=== PATIENT | female | born 1995 | race Caucasian/White ===

== ENCOUNTER 2022-04-11 21:11 | Observation (INO) ==
[2022-04-11] MEDS ORDERED: SODIUM CHLORIDE 0.9% 500 ML IV SCH (21:30)
[2022-04-11 21:59] LABS: Basophils # (auto) 0.08 K/uL (0-0.2); Basophils % (auto) 0.9 %; Eosinophils # (auto) 0.08 K/uL (0-0.50); Eosinophils % (auto) 0.9 %; Hematocrit (blood only) 41.9 % (34.1-44.9); Immature Granulocytes # (auto) 0.02 K/uL (0.00-0.02); Immature Granulocytes % (auto) 0.2 %; Lymphocytes # (auto) 3.46 K/uL (1.2-3.4); Lymphocytes % (auto) 40.5 %; Mean Corpuscular Hemoglobin 31.7 pg (25.0-34.0); Mean Corpuscular Hgb Conc 33.4 g/dL (32.0-36.0); Mean Platelet Volume 8.9 fL (9.4-12.3); Monocytes # (auto) 0.57 K/uL (0.24-0.82); Monocytes % (auto) 6.7 %; Neutrophils # (auto) 4.34 K/uL (1.4-6.5); Neutrophils % (auto) 50.8 %; Platelet Count 262 K/uL (130-400); RDW Standard Deviation 45.6 fL (36.4-46.3); Red Blood Count 4.41 M/uL (3.93-5.22); White Blood Count 8.55 K/ul (4.8-10.8)
[2022-04-11 22:00] LABS: iSTAT Creatinine 1.3 mg/dl (0.6-1.3); iSTAT Ionized Calcium 1.07 mmol/l (1.12-1.32); iSTAT Potassium 3.7 mmol/L (3.3-5.0)
[2022-04-11 22:07] LABS: Appearance Urine Turbid (Clear); Bacteria Urine Automated 4+ (Negative); Bilirubin Urine Negative (Negative); Blood Urine Trace (Negative); Color Urine Yellow; Epithelial Cell Urine Auto >30 /lpf (0-5); Glucose Urine UA Negative (Negative); Ketones Urine Negative (Negative); Leukocyte Esterase Urine Trace (Negative); Nitrite Urine Negative (Negative); Protein Urine 2+ (Negative); RBC Urine Automated 0-4 /hpf (0-4); Urobilinogen Urine Negative (Negative); WBC Urine Automated >30 /hpf (0-5); pH Urine 6.5 (4.5-7.5)
[2022-04-11 22:20] LABS: Albumin Globulin Ratio 1.5 (0.9-2); BUN Creatinine Ratio 12.8 (10-20); Bilirubin,Total 0.2 mg/dl (0.2-1.0); Calcium 8.8 mg/dl (8.5-10.1); Creatinine Clr Calc Pharmacy 80.1 ml/min; Est GFR (African American) 96.4 ml/min; Est GFR (Non-African American) 83.1 ml/min; Globulin 2.7 gm/dl (2.5-4.0); Potassium 3.7 mmol/L (3.5-5.1); Total Protein 6.7 gm/dl (6.0-8.3)
[2022-04-11 22:25] LABS: Cast Urine Automated 0 /lpf (0-5)
[2022-04-11 22:29] LABS: Pregnancy Test, Urine Negative (Negative)
[2022-04-11 22:38] LABS: Amphetamines+Metham, Urine Neg (Neg); Barbiturates, Urine Neg (Neg); Benzodiazepine, Urine Neg (Neg); Cocaine, Urine Neg (Neg); MDMA (Ecstacy), Urine Neg (Neg); Methadone, Urine Neg (Neg); Opiate, Urine Neg (Neg); Phencyclidine, Urine Neg (Neg)
[2022-04-11] MEDS ORDERED: MULTI-VITAMIN INFUSION 10 ML, THIAMINE HCL 100 MG, FOLIC ACID 1 MG in SODIUM CHLORIDE 0... IV ONE (23:13)
--- NOTE | 2022-04-11 23:13 | Emergency Department Note ---
History of Present Illness General Chief complaint: Unresponsive Stated complaint: etoh History of Present Illness 26-year-old female with a history of alcoholism presents to the ED with a chief complaint of alcohol overdose. The patient broke up with her boyfriend earlier this week. She has been drinking alcohol since Friday every day. The mother states that she has been drinking vodka. The patient called her mother this evening and told her she thinks she overdid it. The mother went to the patient's house and she was unresponsive. EMS was called. Prehospital blood sugar was 96. No known drug use. No known trauma. No additional history at this time as the patient is unresponsive. History was obtained from the mother who came in later. There was no vomitus at the scene or vomiting for EMS. Home Medications Medication Instructions Recorded Confirmed Type Unobtainable 04/11/22 04/11/22 History Allergies Allergy/AdvReac Type Severity Reaction Status Date / Time amoxicillin Allergy Mild rash Verified 12/21/13 17:35 clavulanic acid Allergy Mild rash Verified 12/21/13 17:35 Past Med/Surg History Medical History (Updated 04/11/22 @ 23:13 by Adolph Major DO) Alcohol abuse Alcoholism Social History Smoking Status: Unknown if ever smoked Preferred Language: Amharic Feels Safe at Home: Declines to Answer Review of Systems Unobtainable due to cognitive status Physical Exam Vital Signs Vital Signs - 24 hr 04/11/22 21:21 04/11/22 21:22 04/11/22 21:30 Temperature 36.8 C Temperature Source Oral Pulse Rate 64 85 61 Pulse Rate from SpO2 Sensor 64 61 Respiratory Rate 17 14 20 Respiratory Depth Normal Blood Pressure 118/77 Blood Pressure Mean 90 Pulse Oximetry 97 99 95 Oxygen Delivery Method Room Air Oxygen Flow Rate Sepsis Recent Fever Within 48 Hours No Sepsis New/Unexplained Change in Mental Status No Sepsis Action Taken by Nursing No Action Required 04/11/22 22:00 04/11/22 22:13 04/11/22 22:30 Temperature Temperature Source Pulse Rate 106 H 66 84 Pulse Rate from SpO2 Sensor 105 H 65 82 Respiratory Rate 14 19 15 Respiratory Depth Blood Pressure 120/89 115/75 119/67 Blood Pressure Mean 99 88 84 Pulse Oximetry 100 100 93 Oxygen Delivery Method Oxygen Flow Rate Sepsis Recent Fever Within 48 Hours Sepsis New/Unexplained Change in Mental Status Sepsis Action Taken by Nursing 04/11/22 23:00 04/11/22 23:01 Temperature Temperature Source Pulse Rate 67 79 Pulse Rate from SpO2 Sensor 68 Respiratory Rate 13 15 Respiratory Depth Blood Pressure 117/67 Blood Pressure Mean 83 Pulse Oximetry 100 100 Oxygen Delivery Method Nasal Cannula Oxygen Flow Rate 2 Sepsis Recent Fever Within 48 Hours Sepsis New/Unexplained Change in Mental Status Sepsis Action Taken by Nursing CONSTITUTIONAL/VITAL SIGNS: Reviewed / noted above. GENERAL: Unresponsive but in no distress. INTEGUMENTARY: Warm, dry, and [place]. HEAD: Normocephalic. EYES: without scleral icterus or trauma. Pupils are symmetric and responsive to light. ENT/OROPHARYNX: clear and moist. LYMPHADENOPATHY/NECK: No lymphadenopathy RESPIRATORY: Clear to auscultation bilaterally. No increased work of breathing. CARDIOVASCULAR: Regular rate and rhythm. GI/ABDOMEN: Soft and nontender. No organomegaly or pulsatile mass. EXTREMITIES: Warm and well perfused. NEUROLOGICAL: The patient opens her eyes to painful stimuli but does not respond verbally. Does not follow commands. MUSCULOSKELETAL: Normally developed without trauma. TRIAGE NURSING DOCUMENTATION REVIEWED. Course Administered Medications Discontinued Medications Sodium Chloride (Nss) 500 mls @ 999 mls/hr IV .Q31M DEXTER Stop: 04/11/22 22:00 Last Admin: 04/11/22 22:01 Dose: 999 mls/hr Documented by: [id number] Medical Decision Making Differential Diagnosis There is no evidence of other toxic ingestions, trauma, anemia, hypoglycemia, head injury or intracranial pathology, meningitis, encephalitis, acute intrathoracic or abdominal pathology or other metabolic condition. Medical Records Attestation: I reviewed the patient's medical records. Home Medications Current Medication List: was personally reviewed by ks Laboratory Data Attestation: I reviewed the patient's lab results. Result diagrams: 04/11/22 21:41 04/11/22 21:41 Lab Results 04/11/22 04/11/22 04/11/22 Range/Units 21:41 21:41 21:41 WBC 8.55 (4.8-10.8) K/ul RBC 4.41 (3.93-5.22) M/uL Hgb 14.0 (12.0-16.0) g/dl POC Hgb (12.0-16.0) g/dl Hct 41.9 (34.1-44.9) % POC Hct (37-47) % MCV 95.0 (80.0-100.0) fL MCH 31.7 (25.0-34.0) pg MCHC 33.4 (32.0-36.0) g/dL RDW Std Deviation 45.6 (36.4-46.3) fL RDW Coeff of Lara 13.0 (11.5-14.5) % Plt Count 262 (130-400) K/uL MPV 8.9 L (9.4-12.3) fL Immature Gran % (Auto) 0.2 % Neut % (Auto) 50.8 % Lymph % (Auto) 40.5 % [place] % (Auto) 6.7 % Eos % (Auto) 0.9 % Baso % (Auto) 0.9 % Neut # (Auto) 4.34 (1.4-6.5) K/uL Lymph # (Auto) 3.46 H (1.2-3.4) K/uL [place] # (Auto) 0.57 (0.24-0.82) K/uL Eos # (Auto) 0.08 (0-0.50) K/uL Baso # (Auto) 0.08 (0-0.2) K/uL Immature Gran # (Auto) 0.02 (0.00-0.02) K/uL POC Sodium (135-144) mmol/L Sodium 140 (136-145) mmol/L POC Potassium (3.3-5.0) mmol/L Potassium 3.7 (3.5-5.1) mmol/L POC Chloride (101-112) mmol/L Chloride 103 (98-107) mmol/L Carbon Dioxide 30 (21-32) mmol/L POC Total CO2 (24-31) mmol/L Anion Gap 7 (3-11) POC Anion Gap (16-25) mmol/L POC BUN (7-18) mg/dl BUN 12 (6-23) mg/dl Creatinine 0.94 (0.6-1.2) mg/dl POC Creatinine (0.6-1.3) mg/dl Est Cr Clr Drug Dosing 80.1 ml/min Est GFR ( Amer) 96.4 ml/min Est GFR (Non-Af Amer) 83.1 ml/min BUN/Creatinine Ratio 12.8 (10-20) Glucose 105 H (70-99(Fasting)) mg/dl POC Glucose (other) (70-99) mg/dl Calcium 8.8 (8.5-10.1) mg/dl POC Ioniz Calcium Norma (1.12-1.32) mmol/l Magnesium 2.0 (1.7-2.4) mg/dl Total Bilirubin 0.2 (0.2-1.0) mg/dl AST 17 (13-39) U/L ALT 16 (7-52) U/L Alkaline Phosphatase 51 (34-104) U/L Total Protein 6.7 (6.0-8.3) gm/dl Albumin 4.0 (3.4-5.0) gm/dl Globulin 2.7 (2.5-4.0) gm/dl Albumin/Globulin Ratio 1.5 (0.9-2) Urine Color Urine Appearance (Clear) Urine pH (4.5-7.5) Ur Specific [place] (1.000-1.030) Urine Protein (Negative) Urine Glucose (UA) (Negative) Urine Ketones (Negative) Urine Blood (Negative) Urine Nitrite (Negative) Urine Bilirubin (Negative) Urine Urobilinogen (Negative) Ur Leukocyte Esterase (Negative) Urine WBC (Auto) (0-5) /hpf Urine RBC (Auto) (0-4) /hpf U Hyaline Cast (Auto) (0-5) /lpf U Epithel Cells (Auto) (0-5) /lpf Urine Bacteria (Auto) (Negative) Urine Yeast Urine Test (Negative) Urine Opiates Screen (Neg) Ur Methadone, Qual (Neg) Urine Barbiturates (Neg) Ur Phencyclidine (PCP) (Neg) U Amphetamin/Meth Scrn (Neg) MDMA (Ecstasy) Screen (Neg) U Benzodiazepines Scrn (Neg) Ur Cocaine Metabolite (Neg) U Marijuana (THC) Screen (Neg) Ethyl Alcohol mg/dL 490.8 H (<10.0) mg/dl 04/11/22 04/11/22 04/11/22 Range/Units 21:47 21:55 21:55 WBC (4.8-10.8) K/ul RBC (3.93-5.22) M/uL Hgb (12.0-16.0) g/dl POC Hgb 15.0 (12.0-16.0) g/dl Hct (34.1-44.9) % POC Hct 44 (37-47) % MCV (80.0-100.0) fL MCH (25.0-34.0) pg MCHC (32.0-36.0) g/dL RDW Std Deviation (36.4-46.3) fL RDW Coeff of Lara (11.5-14.5) % Plt Count (130-400) K/uL MPV (9.4-12.3) fL Immature Gran % (Auto) % Neut % (Auto) % Lymph % (Auto) % [place] % (Auto) % Eos % (Auto) % Baso % (Auto) % Neut # (Auto) (1.4-6.5) K/uL Lymph # (Auto) (1.2-3.4) K/uL [place] # (Auto) (0.24-0.82) K/uL Eos # (Auto) (0-0.50) K/uL Baso # (Auto) (0-0.2) K/uL Immature Gran # (Auto) (0.00-0.02) K/uL POC Sodium 141 (135-144) mmol/L Sodium (136-145) mmol/L POC Potassium 3.7 (3.3-5.0) mmol/L Potassium (3.5-5.1) mmol/L POC Chloride 101 (101-112) mmol/L Chloride (98-107) mmol/L Carbon Dioxide (21-32) mmol/L POC Total CO2 29 (24-31) mmol/L Anion Gap (3-11) POC Anion Gap 15.0 L (16-25) mmol/L POC BUN 13 (7-18) mg/dl BUN (6-23) mg/dl Creatinine (0.6-1.2) mg/dl POC Creatinine 1.3 (0.6-1.3) mg/dl Est Cr Clr Drug Dosing ml/min Est GFR ( Amer) ml/min Est GFR (Non-Af Amer) ml/min BUN/Creatinine Ratio (10-20) Glucose (70-99(Fasting)) mg/dl POC Glucose (other) 106 H (70-99) mg/dl Calcium (8.5-10.1) mg/dl POC Ioniz Calcium Norma 1.07 L (1.12-1.32) mmol/l Magnesium (1.7-2.4) mg/dl Total Bilirubin (0.2-1.0) mg/dl AST (13-39) U/L ALT (7-52) U/L Alkaline Phosphatase (34-104) U/L Total Protein (6.0-8.3) gm/dl Albumin (3.4-5.0) gm/dl Globulin (2.5-4.0) gm/dl Albumin/Globulin Ratio (0.9-2) Urine Color Yellow Urine Appearance Turbid A (Clear) Urine pH 6.5 (4.5-7.5) Ur Specific [place] 1.010 (1.000-1.030) Urine Protein 2+ H (Negative) Urine Glucose (UA) Negative (Negative) Urine Ketones Negative (Negative) Urine Blood Trace H (Negative) Urine Nitrite Negative (Negative) Urine Bilirubin Negative (Negative) Urine Urobilinogen Negative (Negative) Ur Leukocyte Esterase Trace H (Negative) Urine WBC (Auto) >30 H (0-5) /hpf Urine RBC (Auto) 0-4 (0-4) /hpf U Hyaline Cast (Auto) 0 (0-5) /lpf U Epithel Cells (Auto) >30 H (0-5) /lpf Urine Bacteria (Auto) 4+ H (Negative) Urine Yeast Not Reportable Urine Test (Negative) Urine Opiates Screen Neg (Neg) Ur Methadone, Qual Neg (Neg) Urine Barbiturates Neg (Neg) Ur Phencyclidine (PCP) Neg (Neg) U Amphetamin/Meth Scrn Neg (Neg) MDMA (Ecstasy) Screen Neg (Neg) U Benzodiazepines Scrn Neg (Neg) Ur Cocaine Metabolite Neg (Neg) U Marijuana (THC) Screen Neg (Neg) Ethyl Alcohol mg/dL (<10.0) mg/dl 04/11/22 Range/Units 21:55 WBC (4.8-10.8) K/ul RBC (3.93-5.22) M/uL Hgb (12.0-16.0) g/dl POC Hgb (12.0-16.0) g/dl Hct (34.1-44.9) % POC Hct (37-47) % MCV (80.0-100.0) fL MCH (25.0-34.0) pg MCHC (32.0-36.0) g/dL RDW Std Deviation (36.4-46.3) fL RDW Coeff of Lara (11.5-14.5) % Plt Count (130-400) K/uL MPV (9.4-12.3) fL Immature Gran % (Auto) % Neut % (Auto) % Lymph % (Auto) % [place] % (Auto) % Eos % (Auto) % Baso % (Auto) % Neut # (Auto) (1.4-6.5) K/uL Lymph # (Auto) (1.2-3.4) K/uL [place] # (Auto) (0.24-0.82) K/uL Eos # (Auto) (0-0.50) K/uL Baso # (Auto) (0-0.2) K/uL Immature Gran # (Auto) (0.00-0.02) K/uL POC Sodium (135-144) mmol/L Sodium (136-145) mmol/L POC Potassium (3.3-5.0) mmol/L Potassium (3.5-5.1) mmol/L POC Chloride (101-112) mmol/L Chloride (98-107) mmol/L Carbon Dioxide (21-32) mmol/L POC Total CO2 (24-31) mmol/L Anion Gap (3-11) POC Anion Gap (16-25) mmol/L POC BUN (7-18) mg/dl BUN (6-23) mg/dl Creatinine (0.6-1.2) mg/dl POC Creatinine (0.6-1.3) mg/dl Est Cr Clr Drug Dosing ml/min Est GFR ( Amer) ml/min Est GFR (Non-Af Amer) ml/min BUN/Creatinine Ratio (10-20) Glucose (70-99(Fasting)) mg/dl POC Glucose (other) (70-99) mg/dl Calcium (8.5-10.1) mg/dl POC Ioniz Calcium Norma (1.12-1.32) mmol/l Magnesium (1.7-2.4) mg/dl Total Bilirubin (0.2-1.0) mg/dl AST (13-39) U/L ALT (7-52) U/L Alkaline Phosphatase (34-104) U/L Total Protein (6.0-8.3) gm/dl Albumin (3.4-5.0) gm/dl Globulin (2.5-4.0) gm/dl Albumin/Globulin Ratio (0.9-2) Urine Color Urine Appearance (Clear) Urine pH (4.5-7.5) Ur Specific [place] (1.000-1.030) Urine Protein (Negative) Urine Glucose (UA) (Negative) Urine Ketones (Negative) Urine Blood (Negative) Urine Nitrite (Negative) Urine Bilirubin (Negative) Urine Urobilinogen (Negative) Ur Leukocyte Esterase (Negative) Urine WBC (Auto) (0-5) /hpf Urine RBC (Auto) (0-4) /hpf U Hyaline Cast (Auto) (0-5) /lpf U Epithel Cells (Auto) (0-5) /lpf Urine Bacteria (Auto) (Negative) Urine Yeast Urine Test Negative (Negative) Urine Opiates Screen (Neg) Ur Methadone, Qual (Neg) Urine Barbiturates (Neg) Ur Phencyclidine (PCP) (Neg) U Amphetamin/Meth Scrn (Neg) MDMA (Ecstasy) Screen (Neg) U Benzodiazepines Scrn (Neg) Ur Cocaine Metabolite (Neg) U Marijuana (THC) Screen (Neg) Ethyl Alcohol mg/dL (<10.0) mg/dl Imaging Data My Impression: Chest x-ray: Per my interpretation there is no acute disease. No pneumothorax. CT scan of the brain: Per my interpretation no acute intracranial process. ECG Data Attestation: I personally reviewed and interpreted this ECG as follows: Additional Comments: Twelve-lead EKG: Per my interpretation shows normal sinus rhythm at a rate of 63. No ST elevation. No PVCs. Normal QTC. MDM Narrative 26-year-old female with alcohol intoxication with a history of alcoholism. She had been clean for a number of months but as per the mother, the patient " fell off the wagon" on Friday when she broke up with her boyfriend. She has been drinking approximately a bottle of vodka daily. She was unresponsive when the mother found her today after she had talked to her on the phone and the daughter stated that she thought that she may have had too much to drink. There is no vomiting. The patient was breathing comfortably when she was brought in by EMS. Prehospital blood sugar was 96. No significant findings on my exam other than her unresponsive state likely related to her alcohol of 490. CT scan of the brain did not show acute process. An EKG shows a normal sinus rhythm. CBC and chemistry panel was unremarkable. hCG was negative urine appears contaminated with no obvious infection. Urine drug screen was negative chest x-ray was negative for acute disease. The patient was placed supine on a monitor. She will be monitored through the night. Patient was signed out to Dr. Braswell, the night doctor. She was given 500 cc of normal saline IV as well as a banana bag. Impression & Plan Acute alcohol intoxication Discharge Plan Visit Data Chief Complaint: Unresponsive Stated Complaint: etoh ED Provider: Adolph Major Discharge Problem: Acute alcohol intoxication Patient Disposition: Still a Patient Discharge Instructions Krames/Other Patient Handouts: ED Alcohol Intoxication Activity Restrictions/Additional Instructions: Avoid excessive alcohol use. Forms Stand Alone Forms: [facility] Prescriptions Prescriptions: No Action Unobtainable RF: 0 Referrals Referrals: PCP,NO [Primary Care Provider] -
--- NOTE | 2022-04-12 04:48 | Emergency Department Note ---
ED Visit Note Patient is resting in no distress on my repeat evaluation of this patient at 4:45 AM. Patient is not currently stable for discharge. Patient has been in observation status since 2109 on April 11, 2022. Observation status will be continuing until the patient is sober alert and able to make decisions. Disposition is pending .
--- NOTE | 2022-04-12 06:09 | Emergency Department Note ---
ED Visit Note Repeat examination the patient is more alert sent with me not slurring her speech understands where she is. Does not want rehab. States that she will go home and will contact her mother. Disposition is discharged to home Diagnosis is ethanol intoxication Observation time started at 2109 on April 11, 2022 observation time ends at 6:10 AM April 12, 2022 .
[2022-04-12] MEDS ORDERED: LORazepam 1 MG TAB PO STA (06:37)
--- NOTE | 2022-04-12 07:09 | XRay Report ---
XR chest 1V portable HISTORY: 26 years-old Female weakness acute weakness COMPARISON: Chest radiograph 12/27/2013 TECHNIQUE: Portable AP view of the chest FINDINGS: The cardiomediastinal and hilar silhouettes are within normal limits. There is no pneumothorax, pleur al effusion, airspace consolidation or overt pulmonary edema. Bones of the chest appear normal. Bilat eral nipple jewelry. IMPRESSION: No acute process. ACT 112: Negative or not required by law. The above report was generated using voice recognition software. It may contain grammatical, syntax o r spelling errors. Electronically signed by: Live Glover M.D. 04/12/2022 7:08 AM
--- NOTE | 2022-04-12 07:14 | CT Scan Report ---
CT head/brain wo con CLINICAL HISTORY: 26 years-old Female with unresponsvie. Helical overdose. Acutely altered mental st atus TECHNIQUE: Multiple axial CT images of the head were obtained without contrast. A dose lowering tech nique was utilized adhering to the principles of ALARA. CT DOSE: 537.48 mGy.cm COMPARISON: None. FINDINGS: No acute intracranial hemorrhage, midline shift, intracranial mass, hydrocephalus, territorial ischem ia or abnormal extra-axial collection. The calvarium is intact. The paranasal sinuses, mastoid air cells, and middle ear cavities are clear . IMPRESSION: No acute intracranial abnormality. ACT 112: Negative or not required by law. The above report was generated using voice recognition software. It may contain grammatical, syntax o r spelling errors. Electronically signed by: Live Glover M.D. 04/12/2022 7:13 AM
--- NOTE | 2022-04-12 07:37 | Emergency Department Note ---
ED Visit Note Patient was here awaiting her mother to pick her up and take her home after alcohol overdose yesterday evening. Notified by nursing staff this is the patient states she felt generally ill. Patient states she feels feels a bit out of it. She states that she is concerned about her alcohol drinking and is concerned that she may go into withdrawal. States that she believes she had a seizure in the past in relation to her alcohol withdrawal. Denies hallucinations currently. Does feel somewhat anxious. Was previously given just a little bit ago on oral dose of Ativan. She is not significantly tachycardic or hypertensive here and does not appear tremulous on exam. Discussed with the patient given her significant alcohol use rapid cessation of alcohol without a taper would be dangerous precipitating dangerous alcohol withdrawal. Recommended rehab. Previously seen by case management who discussed this with her as well. Patient states that she wants to go to a further [id number] rehab and wanted to go home to have this set up. Discussed with her I could give her several tabs of Ativan at home to help withdrawal symptoms as needed but monitored withdrawal care given her significant alcohol usage and patient rehab would be recommended. Mother arrives and did have case management readdress this issue with her to discuss possible inpatient rehab options. Given her history of seizures she is agreeable that she needs monitored treatment if she wishes to stop drinking and as such we will have the hospitalist team evaluate for observation at this time for monitored withdrawal while case management works for possible rehab options. Given some Ativan as well some Tylenol for a mild headache. Negative prior CT imaging. Believe she does have some anxiety as well as minimal withdrawal at this point. Diagnosis: Alcohol intoxication, alcohol abuse, history of alcohol withdrawal .
[2022-04-12] MEDS ORDERED: LORazepam 2 MG/1 ML VIAL IV STA (08:03)
[2022-04-12] MEDS ORDERED: ACETAMINOPHEN 325 MG TAB PO STA (08:15)
[2022-04-12] MEDS ORDERED: LORazepam 3 MG in SYRINGE 1.5 ML IV PRN (10:56)
[2022-04-12] MEDS ORDERED: LORazepam 2 MG in SYRINGE 1 ML IV PRN (10:56)
[2022-04-12] MEDS ORDERED: LORazepam 1 MG in SYRINGE 0.5 ML IV PRN (10:56)
[2022-04-12] MEDS ORDERED: ATIVAN IV ALCOHOL WITHDRAWL IV PRN (10:56)
--- NOTE | 2022-04-12 11:32 | History & Physical Report ---
Date of Service April 12, 2022 Assessment & Plan (1) Acute alcohol intoxication: Plan: 26 yo female with PMHx of alcoholism presented with acute alcohol intoxication. Acute Alcohol Intoxication -h/o of alcoholism, 1st episode in several months -ethyl alcohol 490 -head CT neg -CXR neg -UDS neg -NSS bolus, banana bag, ativan given in ED -cont. folic acid, thiamine -on AWSS protocol, seizure precautions -continues to clinically improve; discussed alcoholism treatment options after discharge with mom and patient including but not limited to rehab, pharmacotherapy, behavioral therapy, close f/u with PCP. Open to all options. Will likely begin with close PCP f/u and discuss further options from there. Would recommend treating underlying anxiety/depression as well in outpatient setting which could be primary risk factor for drinking habits. DVT ppx: SCDs FEN/GI: regular Code Status: full Dispo: med tele (2) Alcoholism: Admission and Anticipated Discharge Date Admission Date: April 12, 2022 History of Present Illness Chief Complaint: Alcohol abuse Primary Care Provider: NO PCP 26 yo female with PMHx of alcoholism presented with acute alcohol intoxication. Has been on a 3-4 day binge drinking puri due to feelings of anxiety/depression from a recent breakup. Prior, she would have a drink every now and then but had not binged drink like this for the past 3 months. She is concerned about her alcohol drinking and going into withdrawal. She thinks she may have had has had a withdrawal seizure in the past. Denies tremors, hallucinations, chest pain, headache, N/V. She does feel generally anxious. Does have a long standing history of anxiety and has been on medication in the past but not currently. She is open to treatment options for alcohol abuse. Recently moved to [place]. Does have good family support. Allergies Allergy/AdvReac Type Severity Reaction Status Date / Time amoxicillin Allergy Mild rash Verified 12/21/13 17:35 clavulanic acid Allergy Mild rash Verified 12/21/13 17:35 Home Medications Medication Instructions Recorded Confirmed Type Unobtainable 04/11/22 04/11/22 History Past Med/Surg History Medical History (Updated 04/11/22 @ 23:13 by Adolph Major DO) Alcohol abuse Alcoholism Social History Smoking Status: Never smoker Hx Alcohol Use: Yes Alcohol type: hard liquor Hx Substance Use: No Preferred Language: Greenlandic Communication Ability: Effective Public Administration Professor Required: No Beliefs That Will Affect Care: None Current Living Situation: Alone Feels Safe at Home: Yes Assistive Devices: None Review of Systems Review of Systems: All systems reviewed & are unremarkable except as noted in HPI & below Physical Exam Physical Exam: Constitutional: mom at bedside, in no acute distress, anxious appearing but pleasant, intact memory. Vitals as above. HEENT: No scleral injection or discharge.Moist mucous membranes.Clear oropharynx without erythema or exudate. Neck: Supple without lymphadenopathy. Trachea midline. Lungs: CTA bilaterally with good effort, no accessory muscle use Cardiac: RRR, no murmurs Abdomen: Soft, nontender, and nondistended.No guarding. MSK: No cyanosis or clubbing. Extremities motor strength 5/5. Skin: No rashes, warm, dry. Neurologic: Grossly intact cranial nerves and 2+ patellar tendon reflexes bilaterally. PERRL. Results & Data Results & Data ([facility]) Vital Signs (Past 12 Hours) Vital Signs Temp Pulse Pulse Resp BP BP Pulse Ox 04/12/22 10:56 36.8 C 88 14 110/78 98 04/12/22 10:00 92 H 16 93 04/12/22 09:30 84 21 97/59 L 04/12/22 09:00 94 H 13 121/87 04/12/22 08:30 108 H 12 133/89 04/12/22 08:00 90 15 140/82 94 04/12/22 07:30 87 13 144/95 H 100 04/12/22 07:01 95 H 15 126/97 97 04/12/22 07:00 91 H 21 100 04/12/22 06:30 98 H 12 98/56 L 95 04/12/22 06:00 75 9 L 96/42 L 97 04/12/22 05:30 83 13 92/54 L 04/12/22 05:00 74 15 101/50 L 94 04/12/22 04:30 84 13 99/46 L 98 04/12/22 04:00 79 12 94/52 L 04/12/22 03:30 73 17 92/45 L 04/12/22 03:00 84 12 96/62 L 04/12/22 02:30 93 H 16 120/78 07/08/22 02:00 94 H 17 112/74 04/12/22 01:30 89 15 117/71 04/12/22 01:27 95 04/12/22 01:25 90 16 116/78 95 04/12/22 01:00 89 16 116/78 04/12/22 00:30 100 H 5 L 121/93 04/12/22 00:29 136/103 H 04/12/22 00:15 109 H 15 04/12/22 00:08 93 H 16 111/72 04/12/22 00:00 102 H 20 04/11/22 23:30 87 13 127/81 100 Laboratory Results Laboratory Results WBC 8.55 K/ul (4.8-10.8) 04/11/22 21:41 RBC 4.41 M/uL (3.93-5.22) 04/11/22 21:41 Hgb 14.0 g/dl (12.0-16.0) 04/11/22 21:41 POC Hgb 15.0 g/dl (12.0-16.0) 04/11/22 21:47 Hct 41.9 % (34.1-44.9) 04/11/22 21:41 POC Hct 44 % (37-47) 04/11/22 21:47 MCV 95.0 fL (80.0-100.0) 04/11/22 21:41 MCH 31.7 pg (25.0-34.0) 04/11/22 21:41 MCHC 33.4 g/dL (32.0-36.0) 04/11/22 21:41 RDW Std Deviation 45.6 fL (36.4-46.3) 04/11/22 21:41 RDW Coeff of Lara 13.0 % (11.5-14.5) 04/11/22 21:41 Plt Count 262 K/uL (130-400) 04/11/22 21:41 MPV 8.9 fL (9.4-12.3) L 04/11/22 21:41 Immature Gran % (Auto) 0.2 % 04/11/22 21:41 Neut % (Auto) 50.8 % 04/11/22 21:41 Lymph % (Auto) 40.5 % 04/11/22 21:41 [place] % (Auto) 6.7 % 04/11/22 21:41 Eos % (Auto) 0.9 % 04/11/22 21:41 Baso % (Auto) 0.9 % 04/11/22 21:41 Neut # (Auto) 4.34 K/uL (1.4-6.5) 04/11/22 21:41 Lymph # (Auto) 3.46 K/uL (1.2-3.4) H 04/11/22 21:41 [place] # (Auto) 0.57 K/uL (0.24-0.82) 04/11/22 21:41 Eos # (Auto) 0.08 K/uL (0-0.50) 04/11/22 21:41 Baso # (Auto) 0.08 K/uL (0-0.2) 04/11/22 21:41 Immature Gran # (Auto) 0.02 K/uL (0.00-0.02) 04/11/22 21:41 POC Sodium 141 mmol/L (135-144) 04/11/22 21:47 Sodium 140 mmol/L (136-145) 04/11/22 21:41 POC Potassium 3.7 mmol/L (3.3-5.0) 04/11/22 21:47 Potassium 3.7 mmol/L (3.5-5.1) 04/11/22 21:41 POC Chloride 101 mmol/L (101-112) 04/11/22 21:47 Chloride 103 mmol/L (98-107) 04/11/22 21:41 Carbon Dioxide 30 mmol/L (21-32) 04/11/22 21:41 POC Total CO2 29 mmol/L (24-31) 04/11/22 21:47 Anion Gap 7 (3-11) 04/11/22 21:41 POC Anion Gap 15.0 mmol/L (16-25) L 04/11/22 21:47 POC BUN 13 mg/dl (7-18) 04/11/22 21:47 BUN 12 mg/dl (6-23) 04/11/22 21:41 Creatinine 0.94 mg/dl (0.6-1.2) 04/11/22 21:41 POC Creatinine 1.3 mg/dl (0.6-1.3) 04/11/22 21:47 Est Cr Clr Drug Dosing 80.1 ml/min 04/11/22 21:41 Est GFR ( Amer) 96.4 ml/min 04/11/22 21:41 Est GFR (Non-Af Amer) 83.1 ml/min 04/11/22 21:41 BUN/Creatinine Ratio 12.8 (10-20) 04/11/22 21:41 Glucose 105 mg/dl (70-99(Fasting)) H 04/11/22 21:41 POC Glucose (other) 106 mg/dl (70-99) H 04/11/22 21:47 Calcium 8.8 mg/dl (8.5-10.1) 04/11/22 21:41 POC Ioniz Calcium Norma 1.07 mmol/l (1.12-1.32) L 04/11/22 21:47 Magnesium 2.0 mg/dl (1.7-2.4) 04/11/22 21:41 Total Bilirubin 0.2 mg/dl (0.2-1.0) 04/11/22 21:41 AST 17 U/L (13-39) 04/11/22 21:41 ALT 16 U/L (7-52) 04/11/22 21:41 Alkaline Phosphatase 51 U/L (34-104) 04/11/22 21:41 Total Protein 6.7 gm/dl (6.0-8.3) 04/11/22 21:41 Albumin 4.0 gm/dl (3.4-5.0) 04/11/22 21:41 Globulin 2.7 gm/dl (2.5-4.0) 04/11/22 21:41 Albumin/Globulin Ratio 1.5 (0.9-2) 04/11/22 21:41 Urine Color Yellow 04/11/22 21:55 Urine Appearance Turbid (Clear) A 04/11/22 21:55 Urine pH 6.5 (4.5-7.5) 04/11/22 21:55 Ur Specific Coulters 1.010 (1.000-1.030) 04/11/22 21:55 Urine Protein 2+ (Negative) H 04/11/22 21:55 Urine Glucose (UA) Negative (Negative) 04/11/22 21:55 Urine Ketones Negative (Negative) 04/11/22 21:55 Urine Blood Trace (Negative) H 04/11/22 21:55 Urine Nitrite Negative (Negative) 04/11/22 21:55 Urine Bilirubin Negative (Negative) 04/11/22 21:55 Urine Urobilinogen Negative (Negative) 04/11/22 21:55 Ur Leukocyte Esterase Trace (Negative) H 04/11/22 21:55 Urine WBC (Auto) >30 /hpf (0-5) H 04/11/22 21:55 Urine RBC (Auto) 0-4 /hpf (0-4) 04/11/22 21:55 U Hyaline Cast (Auto) 0 /lpf (0-5) 04/11/22 21:55 U Epithel Cells (Auto) >30 /lpf (0-5) H 04/11/22 21:55 Urine Bacteria (Auto) 4+ (Negative) H 04/11/22 21:55 Urine Yeast Not Reportable 04/11/22 21:55 Urine Test Negative (Negative) 04/11/22 21:55 Urine Opiates Screen Neg (Neg) 04/11/22 21:55 Ur Methadone, Qual Neg (Neg) 04/11/22 21:55 Urine Barbiturates Neg (Neg) 04/11/22 21:55 Ur Phencyclidine (PCP) Neg (Neg) 04/11/22 21:55 U Amphetamin/Meth Scrn Neg (Neg) 04/11/22 21:55 MDMA (Ecstasy) Screen Neg (Neg) 04/11/22 21:55 U Benzodiazepines Scrn Neg (Neg) 04/11/22 21:55 Ur Cocaine Metabolite Neg (Neg) 04/11/22 21:55 U Marijuana (THC) Screen Neg (Neg) 04/11/22 21:55 Ethyl Alcohol mg/dL 490.8 mg/dl (<10.0) H 04/11/22 21:41 SARS-CoV-2, RNA, NAAT NEGATIVE (NEGATIVE) 04/12/22 08:26 Impressions Chest X-Ray 04/11/22 21:30 XR chest 1V portable HISTORY: 26 years-old Female weakness acute weakness COMPARISON: Chest radiograph 12/27/2013 TECHNIQUE: Portable AP view of the chest FINDINGS: The cardiomediastinal and hilar silhouettes are within normal limits. There is no pneumothorax, pleural effusion, airspace consolidation or overt pulmonary edema. Bones of the chest appear normal. Bilateral nipple jewelry. IMPRESSION: No acute process. ACT 112: Negative or not required by law. The above report was generated using voice recognition software. It may contain grammatical, syntax or spelling errors. Electronically signed by: Live Glover M.D. 04/12/2022 7:[address] 04/11/22 21:30 CT head/brain wo con CLINICAL HISTORY: 26 years-old Female with unresponsvie. Helical overdose. Acutely altered mental status TECHNIQUE: Multiple axial CT images of the head were obtained without contrast. A dose lowering technique was utilized adhering to the principles of ALARA. CT DOSE: 537.48 mGy.cm COMPARISON: None. FINDINGS: No acute intracranial hemorrhage, midline shift, intracranial mass, hydrocephalus, territorial ischemia or abnormal extra-axial collection. The calvarium is intact. The paranasal sinuses, mastoid air cells, and middle ear cavities are clear. IMPRESSION: No acute intracranial abnormality. ACT 112: Negative or not required by law. The above report was generated using voice recognition software. It may contain grammatical, syntax or spelling errors. Electronically signed by: Live Glover M.D. 04/12/2022 7:13 AM Code Status & VTE Plan VTE Prophylaxis Plan VTE Prophylaxis will be ordered: Yes Supervising Physician Co-Signing Physician Notes I personally examined the patient and verified all [place] points of history and exam, discussed case, and agree with decision making with Dr Lin. Feeling okay right now. Just a little bit spacey from the Ativan. No longer shaky. Believes she had a withdrawal seizure at 1 point. Current drinking binge has only been about 3 to 4 days, she was totally sober for about 2 months prior. Has had some fairly heavy drinking in the past. Vitals noted, in general she is awake and alert pleasant no distress. HEENT normocephalic atraumatic mucous membranes moist. Breathing unlabored no accessory muscle use good effort. Skin shows no rashes no pallor or icterus. Neuro without tremulousness and no other focal deficits or lateralizing signs at this time. Alcohol abuse/concern on withdrawalgiven that she did have previous withdrawal seizures, and her level of concern, it is quite reasonable to watch her overnight. Discussed with patient and mother that withdrawal seizures would most likely be a "front and" occurrence in the withdrawal processand therefore if she does not have any seizures by tomorrow it becomes less and less likely to occur. Discussed frankly that withdrawal itself can be much more on a delay and that she may not be truly "out of the street" from any withdrawal until Friday or Fridaybut if she looks good from a withdrawal standpoint tomorrow, given that her current relapse has only been 3 or 4 days, it would be pretty reasonable to have her go home with her motherwith the agreement that if she started to show true withdrawal then she would return to the hospital. For now we will follow overnight, if she is looking good by morning can consider home, if she starting to show more withdrawal, symptom triggered benzodiazepines are already in place. Continue thiamine and folate. Discussed seeking treatment not just for alcohol abuse, but also for the highly likely underlying anxiety/depression that is driving the alcohol abuse. Otherwise as above. Resident Activity Tracking Resident Involvement: Resident Care Provided Care Provided: Adult Hospital Medicine
[2022-04-12 11:41] LABS: Basophils # (auto) 0.07 K/uL (0-0.2); Basophils % (auto) 0.8 %; Eosinophils # (auto) 0.05 K/uL (0-0.50); Eosinophils % (auto) 0.6 %; Hematocrit (blood only) 38.4 % (34.1-44.9); Immature Granulocytes # (auto) 0.02 K/uL (0.00-0.02); Immature Granulocytes % (auto) 0.2 %; Lymphocytes # (auto) 3.51 K/uL (1.2-3.4); Lymphocytes % (auto) 40.5 %; Mean Corpuscular Hemoglobin 32.3 pg (25.0-34.0); Mean Corpuscular Hgb Conc 33.9 g/dL (32.0-36.0); Mean Corpuscular Volume 95.5 fL (80.0-100.0); Mean Platelet Volume 8.8 fL (9.4-12.3); Monocytes # (auto) 0.46 K/uL (0.24-0.82); Monocytes % (auto) 5.3 %; Neutrophils # (auto) 4.56 K/uL (1.4-6.5); Neutrophils % (auto) 52.6 %; Platelet Count 233 K/uL (130-400); RDW Coefficient of Variation 13.1 % (11.5-14.5); RDW Standard Deviation 46.1 fL (36.4-46.3); Red Blood Count 4.02 M/uL (3.93-5.22); White Blood Count 8.67 K/ul (4.8-10.8)
--- NOTE | 2022-04-12 11:43 | Billing Data ---
Date of Service April 12, 2022 Coding Level of Care Code 13153 Initial Inpt Care Lvl 2
[2022-04-12 11:48] LABS: Prothrombin Time 10.6 Seconds (9.0-12.0)
[2022-04-12 11:59] LABS: Albumin Globulin Ratio 1.5 (0.9-2); Albumin Level 3.8 gm/dl (3.4-5.0); BUN Creatinine Ratio 10.7 (10-20); Bilirubin,Total 0.3 mg/dl (0.2-1.0); Calcium 8.2 mg/dl (8.5-10.1); Creatinine Clr Calc Pharmacy 100.3 ml/min; Est GFR (African American) 126.6 ml/min; Est GFR (Non-African American) 109.2 ml/min; Globulin 2.5 gm/dl (2.5-4.0); Potassium 3.7 mmol/L (3.5-5.1); Total Protein 6.3 gm/dl (6.0-8.3)
[2022-04-12] MEDS: LORazepam 1 MG TAB PO PRN ×2 (13:54→20:22)
[2022-04-12] MEDS ORDERED: LORazepam 1 MG in SYRINGE 0.5 ML IV ONE (14:20)
--- NOTE | 2022-04-12 16:12 | Electrocardiogram Report ---
Test Reason : Blood Pressure : / mmHG Vent. Rate : 063 BPM Atrial Rate : 063 BPM P-R Int : 134 ms QRS Dur : 088 ms QT Int : 366 ms P-R-T Axes : 055 069 028 degrees QTc Int : 374 ms Normal sinus rhythm Normal ECG When compared with ECG of 04-AUG-2021 17:33, Vent. rate has decreased BY 43 BPM Nonspecific T wave abnormality, improved in Inferior leads T wave inversion no longer evident in Anterior leads QT has shortened Confirmed by Kb Oneill ([id number]) on 04/12/2022 4:12:08 PM Referred By: REFERRED SELF Confirmed By:Kb Oneill
[2022-04-13] MEDS: LORazepam 1 MG TAB PO PRN ×2 (01:41→06:05)
[2022-04-13 06:41] LABS: Albumin Globulin Ratio 1.6 (0.9-2); Bilirubin,Total 0.8 mg/dl (0.2-1.0); Est GFR (African American) 126.6 ml/min; Est GFR (Non-African American) 109.2 ml/min; Globulin 2.5 gm/dl (2.5-4.0); Total Protein 6.5 gm/dl (6.0-8.3)
[2022-04-13] MEDS ORDERED: FOLIC ACID 1 MG in SYRINGE 9.8 ML IV SCH (09:00)
[2022-04-13] MEDS ORDERED: THIAMINE HCL 100 MG in SYRINGE 9 ML IV SCH (09:00)
[2022-04-13] MEDS ORDERED: ACETAMINOPHEN 325 MG TAB PO PRN (09:40)
--- NOTE | 2022-04-13 12:25 | Electrocardiogram Report ---
Test Reason : Blood Pressure : / mmHG Vent. Rate : 065 BPM Atrial Rate : 065 BPM P-R Int : 130 ms QRS Dur : 086 ms QT Int : 388 ms P-R-T Axes : 053 065 019 degrees QTc Int : 403 ms Normal sinus rhythm with sinus arrhythmia Normal ECG When compared with ECG of 11-APR-2022 21:38, No significant change was found Confirmed by Alan Dior ([id number]) on 04/13/2022 12:25:04 PM Referred By: REFERRED SELF Confirmed By:Vimal Dior
--- NOTE | 2022-04-13 16:16 | Discharge Summary ---
Date of Service April 13, 2022 Admission HPI Per Admitting Provider 26 yo female with PMHx of alcoholism presented with acute alcohol intoxication. Has been on a 3-4 day binge drinking puri due to feelings of anxiety/depression from a recent breakup. Prior, she would have a drink every now and then but had not binged drink like this for the past 3 months. She is concerned about her alcohol drinking and going into withdrawal. She thinks she may have had has had a withdrawal seizure in the past. Denies tremors, hallucinations, chest pain, headache, N/V. She does feel generally anxious. Does have a long standing history of anxiety and has been on medication in the past but not currently. She is open to treatment options for alcohol abuse. [facility] [place] [employer]. Does have good family support. Principal Diagnosis Acute alcohol intoxication Discharge Exam Constitutional: mom at bedside, appears comfortable, in no acute distress, less anxious appearing than before, pleasant. Vitals as above. HEENT: No scleral injection. Moist mucous membranes. Neck: Supple without lymphadenopathy. Trachea midline. Lungs: CTA bilaterally with good effort, no accessory muscle use Cardiac: RRR, no murmurs Abdomen: Soft, nontender, and nondistended.No guarding. MSK: No cyanosis or clubbing. Extremities motor strength 5/5. Skin: No rashes, warm, dry. Neurologic: Grossly intact cranial nerves and 2+ patellar tendon reflexes bilaterally. PERRL. Discharge Data Allergies Allergy/AdvReac Type Severity Reaction Status Date / Time amoxicillin Allergy Mild rash Verified 12/21/13 17:35 clavulanic acid Allergy Mild rash Verified 12/21/13 17:35 Consultations 04/12/22 08:18 ED Decision to Admit Stat Ordered Studies Laboratory Results WBC 8.67 K/ul (4.8-10.8) 04/12/22 11:14 RBC 4.02 M/uL (3.93-5.22) 04/12/22 11:14 Hgb 13.0 g/dl (12.0-16.0) 04/12/22 11:14 POC Hgb 15.0 g/dl (12.0-16.0) 04/11/22 21:47 Hct 38.4 % (34.1-44.9) 04/12/22 11:14 POC Hct 44 % (37-47) 04/11/22 21:47 MCV 95.5 fL (80.0-100.0) 04/12/22 11:14 MCH 32.3 pg (25.0-34.0) 04/12/22 11:14 MCHC 33.9 g/dL (32.0-36.0) 04/12/22 11:14 RDW Std Deviation 46.1 fL (36.4-46.3) 04/12/22 11:14 RDW Coeff of Lara 13.1 % (11.5-14.5) 04/12/22 11:14 Plt Count 233 K/uL (130-400) 04/12/22 11:14 MPV 8.8 fL (9.4-12.3) L 04/12/22 11:14 Immature Gran % (Auto) 0.2 % 04/12/22 11:14 Neut % (Auto) 52.6 % 04/12/22 11:14 Lymph % (Auto) 40.5 % 04/12/22 11:14 [place] % (Auto) 5.3 % 04/12/22 11:14 Eos % (Auto) 0.6 % 04/12/22 11:14 Baso % (Auto) 0.8 % 04/12/22 11:14 Neut # (Auto) 4.56 K/uL (1.4-6.5) 04/12/22 11:14 Lymph # (Auto) 3.51 K/uL (1.2-3.4) H 04/12/22 11:14 [place] # (Auto) 0.46 K/uL (0.24-0.82) 04/12/22 11:14 Eos # (Auto) 0.05 K/uL (0-0.50) 04/12/22 11:14 Baso # (Auto) 0.07 K/uL (0-0.2) 04/12/22 11:14 Immature Gran # (Auto) 0.02 K/uL (0.00-0.02) 04/12/22 11:14 PT 10.6 Seconds (9.0-12.0) 04/12/22 11:14 INR 1.0 (0.9-1.1) 04/12/22 11:14 POC Sodium 141 mmol/L (135-144) 04/11/22 21:47 Sodium 135 mmol/L (136-145) L 04/13/22 05:42 POC Potassium 3.7 mmol/L (3.3-5.0) 04/11/22 21:47 Potassium 4.0 mmol/L (3.5-5.1) 04/13/22 05:42 POC Chloride 101 mmol/L (101-112) 04/11/22 21:47 Chloride 101 mmol/L (98-107) 04/13/22 05:42 Carbon Dioxide 29 mmol/L (21-32) 04/13/22 05:42 POC Total CO2 29 mmol/L (24-31) 04/11/22 21:47 Anion Gap 5 (3-11) 04/13/22 05:42 POC Anion Gap 15.0 mmol/L (16-25) L 04/11/22 21:47 POC BUN 13 mg/dl (7-18) 04/11/22 21:47 BUN 12 mg/dl (6-23) 04/13/22 05:42 Creatinine 0.75 mg/dl (0.6-1.2) 04/13/22 05:42 POC Creatinine 1.3 mg/dl (0.6-1.3) 04/11/22 21:47 Est Cr Clr Drug Dosing 100.0 ml/min 04/13/22 05:42 Est GFR ( Amer) 126.6 ml/min 04/13/22 05:42 Est GFR (Non-Af Amer) 109.2 ml/min 04/13/22 05:42 BUN/Creatinine Ratio 16.0 (10-20) 04/13/22 05:42 Glucose 94 mg/dl (70-99(Fasting)) 04/13/22 05:42 POC Glucose (other) 106 mg/dl (70-99) H 04/11/22 21:47 Calcium 9.0 mg/dl (8.5-10.1) 04/13/22 05:42 POC Ioniz Calcium Norma 1.07 mmol/l (1.12-1.32) L 04/11/22 21:47 Magnesium 2.0 mg/dl (1.7-2.4) 04/11/22 21:41 Total Bilirubin 0.8 mg/dl (0.2-1.0) D 04/13/22 05:42 AST 18 U/L (13-39) 04/13/22 05:42 ALT 19 U/L (7-52) 04/13/22 05:42 Alkaline Phosphatase 52 U/L (34-104) 04/13/22 05:42 Total Protein 6.5 gm/dl (6.0-8.3) 04/13/22 05:42 Albumin 4.0 gm/dl (3.4-5.0) 04/13/22 05:42 Globulin 2.5 gm/dl (2.5-4.0) 04/13/22 05:42 Albumin/Globulin Ratio 1.6 (0.9-2) 04/13/22 05:42 Urine Color Yellow 04/11/22 21:55 Urine Appearance Turbid (Clear) A 04/11/22 21:55 Urine pH 6.5 (4.5-7.5) 04/11/22 21:55 Ur Specific [place] 1.010 (1.000-1.030) 04/11/22 21:55 Urine Protein 2+ (Negative) H 04/11/22 21:55 Urine Glucose (UA) Negative (Negative) 04/11/22 21:55 Urine Ketones Negative (Negative) 04/11/22 21:55 Urine Blood Trace (Negative) H 04/11/22 21:55 Urine Nitrite Negative (Negative) 04/11/22 21:55 Urine Bilirubin Negative (Negative) 04/11/22 21:55 Urine Urobilinogen Negative (Negative) 04/11/22 21:55 Ur Leukocyte Esterase Trace (Negative) H 04/11/22 21:55 Urine WBC (Auto) >30 /hpf (0-5) H 04/11/22 21:55 Urine RBC (Auto) 0-4 /hpf (0-4) 04/11/22 21:55 U Hyaline Cast (Auto) 0 /lpf (0-5) 04/11/22 21:55 U Epithel Cells (Auto) >30 /lpf (0-5) H 04/11/22 21:55 Urine Bacteria (Auto) 4+ (Negative) H 04/11/22 21:55 Urine Yeast Not Reportable 04/11/22 21:55 Urine Test Negative (Negative) 04/11/22 21:55 Urine Opiates Screen Neg (Neg) 04/11/22 21:55 Ur Methadone, Qual Neg (Neg) 04/11/22 21:55 Urine Barbiturates Neg (Neg) 04/11/22 21:55 Ur Phencyclidine (PCP) Neg (Neg) 04/11/22 21:55 U Amphetamin/Meth Scrn Neg (Neg) 04/11/22 21:55 MDMA (Ecstasy) Screen Neg (Neg) 04/11/22 21:55 U Benzodiazepines Scrn Neg (Neg) 04/11/22 21:55 Ur Cocaine Metabolite Neg (Neg) 04/11/22 21:55 U Marijuana (THC) Screen Neg (Neg) 04/11/22 21:55 Ethyl Alcohol mg/dL 490.8 mg/dl (<10.0) H 04/11/22 21:41 SARS-CoV-2, RNA, NAAT NEGATIVE (NEGATIVE) 04/12/22 08:26 Impressions Chest X-Ray 04/11/22 21:30 XR chest 1V portable HISTORY: 26 years-old Female weakness acute weakness COMPARISON: Chest radiograph 12/27/2013 TECHNIQUE: Portable AP view of the chest FINDINGS: The cardiomediastinal and hilar silhouettes are within normal limits. There is no pneumothorax, pleural effusion, airspace consolidation or overt pulmonary edema. Bones of the chest appear normal. Bilateral nipple jewelry. IMPRESSION: No acute process. ACT 112: Negative or not required by law. The above report was generated using voice recognition software. It may contain grammatical, syntax or spelling errors. Electronically signed by: Live Glover M.D. 04/12/2022 7:[address] 04/11/22 21:30 CT head/brain wo con CLINICAL HISTORY: 26 years-old Female with unresponsvie. Helical overdose. Acutely altered mental status TECHNIQUE: Multiple axial CT images of the head were obtained without contrast. A dose lowering technique was utilized adhering to the principles of ALARA. CT DOSE: 537.48 mGy.cm COMPARISON: None. FINDINGS: No acute intracranial hemorrhage, midline shift, intracranial mass, hydrocephalus, territorial ischemia or abnormal extra-axial collection. The calvarium is intact. The paranasal sinuses, mastoid air cells, and middle ear cavities are clear. IMPRESSION: No acute intracranial abnormality. ACT 112: Negative or not required by law. The above report was generated using voice recognition software. It may contain grammatical, syntax or spelling errors. Electronically signed by: Live Glover M.D. 04/12/2022 7:13 AM Hospital Course (1) Acute alcohol intoxication: 26yo female with PMHx of alcoholism presented with acute alcohol int oxication. Acute Alcohol Intoxication -h/o of alcoholism, 1st intoxication/abuse in several months -ethyl alcohol 490 on admission -head CT neg -CXR neg -UDS neg -NSS bolus, banana bag, ativan given in ED -given folic acid, thiamine -on AWSS protocol, seizure precautions; sporadic doses of 1mg ativan provided per protocol -Discharge planning spoken with patient and mother at bedside. During her stay she has shown minimal signs of withdrawal more specifically only mild anxiety which may be secondary to either chronic anxiety, alcohol withdrawal, or a combination of both. At this point in time there is a low likelihood of her developing seizures due to withdrawal and should be safe to go home. Mom is assured that there is no alcohol in the house and that she will be keeping a close eye on Lupe. In the acute setting we will discharge her on hydroxyzine to be taken as needed for anxiety. We will also set her up with a close follow- up appointment with a primary care provider for further management. At the appointment they can discuss goals of care and treatment options with behavioral therapy and or pharmacological therapy. (2) Alcoholism: Total Time Total Time Spent Total Time Spent (In Minutes): 35 Discharge Plan Discharge Items Patient Disposition: Home - Self-Care Reason For Visit: ALCOHOL WITHDRAWAL Discharge Diagnosis: Acute alcohol intoxication Activity: Per Instructions section Non-emergency contact: Primary Care Provider Call non-emergency contact if: you have any medication questions and your symptoms worsen Follow-up/Referrals: Dillan Lin, [Resident] - (I have a patient in the hospital being discharged today who needs a close follow up with me early this next week. I'm scheduled for FridayMarch 17 afternoon. Is there anyway she can be seen in the 1pm slot? Or even place her in the 4:20 spot. My 4pm I am aware of and likely will not need a 40 min appt. Message sent through [employer] as well. Thanks! ) PCP,NO [Primary Care Provider] - Diet: Regular Addtl Attending Provider Instructions: You were admitted to the hospital for acute alcohol intoxication from over the past 3 to 4 days. The hospital we monitored you closely and gave you occasional doses of Ativan as needed for anxiety and symptoms of withdrawal. This point in time you are approaching 48 hours status post her last alcoholic drink without many psychomotor symptoms or signs of withdrawal. You have a low likelihood of getting a seizure secondary to withdrawal at this point and should be safe for discharge. The ultimate plan going forward will be to treat your underlying anxiety to prevent future intoxications. In the short-term plan we will prescribe you hydroxyzine which is to be taken on an as-needed basis for anxiety. We will see how this medication works for you in the next few days and have a close follow-up with you at our [facility] clinic which is across the street from the hospital. I, Dr. Dillan Lin, will try to get you into an appointment with me Friday. If I am unable to do so I will try to s chedule you with someone else at least for this week so we can monitor you closely and prevent any relapse. At that visit we can discuss setting you up with a behavioral therapist and discuss further pharmacological options for treatment. I would urge you to call our clinic on Friday to either confirm an appointment or schedule I with myself. Our clinic will not open till Friday so I am not sure we will be able to schedule you until then regardless. Clinic Address: [facility] [id number] Phone number: [phone] New Medications: Hydroxyzine 25mg can be taken up to 4 times per day on an as needed basis- as we discussed you may start a half pill at first with 12.5mg and titrate up as needed. Recall, the side affect of this medication is sedation so trial it over the weekend before going to work and do no drive on the medication. Pending Studies at Discharge: No Stand-Alone Forms: My [facility] MD [employer], Smoking Cessation Medications and DC Order Prescriptions: New hydroxyzine HCl 25 mg tablet 25 mg PO QID PRN (Reason: anxiety) Qty: 30 RF: 0 Discharge Orders: Discharge Order (Routine); Ordered 04/13/22 Ordered By: Dillan Lin Admission Data Admit Date/Time: 04/12/22 09:41 Attending Provider: Matthias Roy Admit Provider: Rafi Osman Primary Care Provider: PCP,NO Other Providers: Matthias Roy Other Interventions: Discharge Summary Assessment (RN) Last Done: 04/13/22 16:32 Supervising Physician Co-Signing Physician Notes I supervised Dillan Lin DO on this admission. I interviewed and examined the patient independently of him. The plan is as written in the note except for any following changes/exceptions: 26yo F w/ hx of anxiety and alcohol abuse who presented with alcohol intoxication. She had been sober for several months per her admission, then had a 4-day binge due to life stressors. On my interview, having no withdrawal symptoms. Almost no chance of significant withdrawal given no long-term use. Anxiety is her larger issue and if this is treatable, will hopefully improve her alcohol with her anxiety improved. Will follow up with Dr. Lin this week. Resident Activity Tracking Resident Involvement: Resident Care Provided Care Provided: Adult Hospital Medicine
--- NOTE | 2022-04-13 17:18 | Billing Data ---
Date of Service April 13, 2022 Coding Level of Care Code D/C DAY MANAGEMENT >30 MINS
== END 2022-04-13 17:28 | disposition home or self-care (01) | DRG 897 ==
LOC: ED 21:11 → SUATTDRO 04-12 09:41 → 2N 04-12 09:41 → INTOOBSV 04-12 09:41 → 2N 04-12 10:25

== ENCOUNTER 2023-01-01 18:43 | Inpatient (IN) ==
--- NOTE | 2023-01-01 18:55 | Emergency Department Note ---
Impression & Plan Alcohol intoxication, Acute dehydration, Depression with suicidal ideation ED Provider Note NAME: JORGE CRESPO AGE: 27 SEX: F : 1995 ARRIVES VIA: Ambulance INFORMANT: Patient, ED PROVIDER(S): Star Chamberlain MD CHIEF COMPLAINT: Vaginal bleeding, alcohol use MEDICAL DECISION MAKING: Patient reportedly presents due to concern for vaginal bleeding in setting of . The patient reportedly did drink alcohol and a welfare check was performed and the patient was brought in via EMS. IV was established blood work was obtained along with a efzng-[id number] urine test beta quant's and blood type. Patient's blood work shows white count of 12 with an elevated hemoglobin which may be consistent with dehydration. The patient did receive IV fluids. Platelet count is unremarkable. Kidney function grossly unremarkable. LFTs unremarkable with normal TSH. Salicylate Tylenol negative. Alcohol 539. COVID-negative. The patient beta quant is undetectable. Do not believe the patient requires ultrasounds. Nursing reported the patient did not have any overt bleeding noted when she was changed into paper scrubs. Patient did state that she was drinking alcohol in order to harm her self. Given the patient's significantly elevated alcohol greater than 500 I did speak with the on-call hospitalist service Dr. Sagastume and the patient was admitted for medical clearance with a psychiatric consultation. [facility] protocol was initiated. Prior /Outside records reviewed: I did review the patient's most recent dermatology visit with Dr. Harris. Differential diagnosis: Mood disorder, infection, hypoglycemia, electrolyte abnormalities, cardiac sources, intracerebral event, toxicologic, trauma, neurologic, as well as other pathologies. Diagnostics, as interpreted by me: ECG: None Cardiac monitoring: An order was placed for continuous cardiac monitoring. The monitor shows a rate of 115 with tachycardic and regular rhythm. Patient was placed on pulse oximetry Medical decision rules: None Imaging studies: See below HPI: Patient presents but will only answer primarily with yes or no questions. The patient states that she thinks that she had a miscarriage as she had been pr egnant for possibly greater than 5 months but without any care. Patient states that she began bleeding this morning and that she drank significant mount of vodka. The patient denies taking any other pills or tawp-gfm-dmmxces medications. The patient states that she did do it with the intent to harm her self. Patient denies any nausea vomiting but does complain of some pelvic cramping. PAST MEDICAL HISTORY: See Below PAST SURGICAL HISTORY: See Below SOCIAL HISTORY: See Below HOME MEDICATIONS: See Below ALLERGIES: See Below VITALS: See Below PHYSICAL EXAMINATION: GENERAL: Tearful. Clinically intoxicated EYE EXAM: Normal conjunctiva. PERRL, no anisocoria and EOM's grossly intact w/o pain. NECK: Supple, no nuchal rigidity, no adenopathy, non-tender. No signs of meningismus. FROM of the neck with good chin to chest and neck extension. No stridor. LUNGS: Clear to auscultation. Normal chest wall mechanics. HEART: Tachycardic and regular, no MRG. ABDOMEN: Abdomen soft, non-tender, no masses, no rebound or guarding. BACK: No CVA TTP. SKIN: No rashes and no bruising. UPPER EXTREMITIES: Upper extremities are grossly normal. LOWER EXTREMITIES: Grossly normal, no edema. NEURO EXAM: A&O x3, moves all 4 extremities Past Med/Surg History Medical History Alcohol abuse Alcoholism Migraines Ovarian cyst Surgical History H/O wrist surgery History of appendectomy Family History Grandfather (Paternal) Skin cancer Denies family history of Ovarian cancer Breast cancer Colorectal cancer Social History Smoking Status: Never smoker Hx Alcohol Use: Yes Alcohol type: hard liquor Hx Substance Use: No Preferred Language: Polish Communication Ability: Effective Mail Sorter And Delivery Required: No Beliefs That Will Affect Care: None Current Living Situation: Alone Feels Safe at Home: Yes Assistive Devices: None Allergies Allergies Allergy/AdvReac Type Severity Reaction Status Date / Time amoxicillin Allergy Mild rash Verified 11/18/22 08:33 clavulanic acid Allergy Mild rash Verified 11/18/22 08:33 Home Meds Home Medications Medication Instructions Recorded Confirmed No Known Home Medications 01/01/23 01/01/23 Results & Data (ED) Vital Signs Vital Signs - 24 hr 01/01/23 18:50 01/01/23 19:07 01/01/23 19:16 Temperature 37.1 C Temperature Source Oral Pulse Rate 126 H 118 H Pulse Rate [Apical] Respiratory Rate 18 Blood Pressure 131/93 Blood Pressure [Right Arm] Blood Pressure Mean 105 Blood Pressure Mean [Right Arm] Pulse Oximetry 97 Oxygen Delivery Method Room Air Room Air Sepsis Recent Fever Within 48 Hours No Sepsis New/Unexplained Change in Mental Status No Sepsis Action Taken by Nursing No Action Required 01/01/23 19:33 Temperature Temperature Source Pulse Rate Pulse Rate [Apical] 91 H Respiratory Rate 16 Blood Pressure Blood Pressure [Right Arm] 117/80 Blood Pressure Mean Blood Pressure Mean [Right Arm] 92 Pulse Oximetry 92 Oxygen Delivery Method Room Air Sepsis Recent Fever Within 48 Hours Sepsis New/Unexplained Change in Mental Status Sepsis Action Taken by Long Term Medications Current Medication List: was personally reviewed by me Laboratory Data Attestation: I reviewed the patient's lab results. 01/01/23 19:09 01/01/23 19:09 Lab Results 01/01/23 01/01/23 01/01/23 Range/Units 19:08 19:09 19:09 WBC (4.8-10.8) K/ul RBC (4.20-5.40) M/uL Hgb (12.0-16.0) g/dl Hct (37.0-47.0) % MCV (80.0-100.0) fL MCH (25.0-34.0) pg MCHC (32.0-36.0) g/dL RDW Std Deviation (36.4-46.3) fL RDW Coeff of Lara (11.5-14.5) % Plt Count (130-400) K/uL MPV (9.4-12.4) fL Immature Gran % (Auto) % Neut % (Auto) % Lymph % (Auto) % [place] % (Auto) % Eos % (Auto) % Baso % (Auto) % Neut # (Auto) (1.40-6.50) K/uL Lymph # (Auto) (1.2-3.4) K/uL [place] # (Auto) (0.11-0.59) K/uL Eos # (Auto) (0-0.50) K/uL Baso # (Auto) (0-0.2) K/uL Immature Gran # (Auto) (0.01-0.20) K/uL PT 10.4 (9.0-12.0) Seconds INR 1.0 (0.9-1.1) APTT 23.4 (21.0-31.0) Seconds PTT Ratio 0.9 Sodium (136-145) mmol/L Potassium (3.5-5.1) mmol/L Chloride (98-107) mmol/L Carbon Dioxide (21-32) mmol/L Anion Gap (3-11) BUN (6-23) mg/dl Creatinine (0.6-1.2) mg/dl Est Cr Clr Drug Dosing ml/min Est GFR ( Amer) ml/min Est GFR (Non-Af Amer) ml/min BUN/Creatinine Ratio (10-20) Glucose (70-99(Fasting)) mg/dl Calcium (8.6-10.3) mg/dl Total Bilirubin (0.2-1.0) mg/dl AST (13-39) U/L ALT (7-52) U/L Alkaline Phosphatase (34-104) U/L Total Protein (6.0-8.3) gm/dl Albumin (3.4-5.0) gm/dl Globulin (2.5-4.0) gm/dl Albumin/Globulin Ratio (0.9-2) TSH 1.096 (0.300-4.500) uIu/ml HCG, Quant < 1 mIU/ml Salicylates (3.0-30) mg/dl Acetaminophen (10-30) ug/ml Ethyl Alcohol mg/dL (<10.0) mg/dl SARS-CoV-2, RNA, NAAT (NEGATIVE) Blood Type A Positive 01/01/23 01/01/23 01/01/23 Range/Units 19:09 19:09 19:09 WBC 12.00 H (4.8-10.8) K/ul RBC 5.21 (4.20-5.40) M/uL Hgb 16.5 H (12.0-16.0) g/dl Hct 48.9 H (37.0-47.0) % MCV 93.9 (80.0-100.0) fL MCH 31.7 (25.0-34.0) pg MCHC 33.7 (32.0-36.0) g/dL RDW Std Deviation 47.3 H (36.4-46.3) fL RDW Coeff of Lara 13.6 (11.5-14.5) % Plt Count 365 (130-400) K/uL MPV 8.5 L (9.4-12.4) fL Immature Gran % (Auto) 0.5 % Neut % (Auto) 68.7 % Lymph % (Auto) 27.2 % [place] % (Auto) 2.6 % Eos % (Auto) 0.3 % Baso % (Auto) 0.7 % Neut # (Auto) 8.26 H (1.40-6.50) K/uL Lymph # (Auto) 3.26 (1.2-3.4) K/uL [place] # (Auto) 0.31 (0.11-0.59) K/uL Eos # (Auto) 0.03 (0-0.50) K/uL Baso # (Auto) 0.08 (0-0.2) K/uL Immature Gran # (Auto) 0.06 (0.01-0.20) K/uL PT (9.0-12.0) Seconds INR (0.9-1.1) APTT (21.0-31.0) Seconds PTT Ratio Sodium (136-145) mmol/L Potassium (3.5-5.1) mmol/L Chloride (98-107) mmol/L Carbon Dioxide (21-32) mmol/L Anion Gap (3-11) BUN (6-23) mg/dl Creatinine (0.6-1.2) mg/dl Est Cr Clr Drug Dosing ml/min Est GFR ( Amer) ml/min Est GFR (Non-Af Amer) ml/min BUN/Creatinine Ratio (10-20) Glucose (70-99(Fasting)) mg/dl Calcium (8.6-10.3) mg/dl Total Bilirubin (0.2-1.0) mg/dl AST (13-39) U/L ALT (7-52) U/L Alkaline Phosphatase (34-104) U/L Total Protein (6.0-8.3) gm/dl Albumin (3.4-5.0) gm/dl Globulin (2.5-4.0) gm/dl Albumin/Globulin Ratio (0.9-2) TSH (0.300-4.500) uIu/ml HCG, Quant mIU/ml Salicylates < 3.0 L (3.0-30) mg/dl Acetaminophen < 3 L (10-30) ug/ml Ethyl Alcohol mg/dL 539.0 H (<10.0) mg/dl SARS-CoV-2, RNA, NAAT (NEGATIVE) Blood Type 01/01/23 01/01/23 Range/Units 19:09 19:11 WBC (4.8-10.8) K/ul RBC (4.20-5.40) M/uL Hgb (12.0-16.0) g/dl Hct (37.0-47.0) % MCV (80.0-100.0) fL MCH (25.0-34.0) pg MCHC (32.0-36.0) g/dL RDW Std Deviation (36.4-46.3) fL RDW Coeff of Lara (11.5-14.5) % Plt Count (130-400) K/uL MPV (9.4-12.4) fL Immature Gran % (Auto) % Neut % (Auto) % Lymph % (Auto) % [place] % (Auto) % Eos % (Auto) % Baso % (Auto) % Neut # (Auto) (1.40-6.50) K/uL Lymph # (Auto) (1.2-3.4) K/uL [place] # (Auto) (0.11-0.59) K/uL Eos # (Auto) (0-0.50) K/uL Baso # (Auto) (0-0.2) K/uL Immature Gran # (Auto) (0.01-0.20) K/uL PT (9.0-12.0) Seconds INR (0.9-1.1) APTT (21.0-31.0) Seconds PTT Ratio Sodium 144 (136-145) mmol/L Potassium 3.8 (3.5-5.1) mmol/L Chloride 102 (98-107) mmol/L Carbon Dioxide 25 (21-32) mmol/L Anion Gap 17 H (3-11) BUN 12 (6-23) mg/dl Creatinine 0.95 (0.6-1.2) mg/dl Est Cr Clr Drug Dosing 79.3 ml/min Est GFR ( Amer) 94.5 ml/min Est GFR (Non-Af Amer) 81.5 ml/min BUN/Creatinine Ratio 12.6 (10-20) Glucose 98 (70-99(Fasting)) mg/dl Calcium 9.0 (8.6-10.3) mg/dl Total Bilirubin 0.3 (0.2-1.0) mg/dl AST 18 (13-39) U/L ALT 15 (7-52) U/L Alkaline Phosphatase 66 (34-104) U/L Total Protein 8.5 H (6.0-8.3) gm/dl Albumin 5.0 (3.4-5.0) gm/dl Globulin 3.5 (2.5-4.0) gm/dl Albumin/Globulin Ratio 1.4 (0.9-2) TSH (0.300-4.500) uIu/ml HCG, Quant mIU/ml Salicylates (3.0-30) mg/dl Acetaminophen (10-30) ug/ml Ethyl Alcohol mg/dL (<10.0) mg/dl SARS-CoV-2, RNA, NAAT NEGATIVE (NEGATIVE) Blood Type Administered Medications Sodium Chloride (Nss 1000ml) 1,000 mls @ 125 mls/hr IV .Q8H DEXTER Stop: 01/31/23 21:00 Last Admin: 01/01/23 21:37 Dose: 125 mls/hr Documented By: LAURENT Thiamine HCl 100 mg/ Folic (Acid 1 mg/ Sodium Chloride) 1,001.2 mls @ 500 mls/hr IV .Q2H1M DEXTER; Protocol Stop: 01/01/23 23:01 Last Admin: 01/01/23 22:35 Dose: 500 mls/hr Documented By: PALEMR Discontinued Medications Sodium Chloride (Nss 1000ml) 1,000 mls @ 999 mls/hr IV .Q1H1M DEXTER Stop: 01/01/23 20:00 Last Infusion: 01/01/23 20:33 Dose: 0 mls/hr Documented By: Admin: 01/01/23 19:32 Dose: 999 mls/hr Documented By: PALMER Multivitamins/Minerals (Cerovite Adv Formula Tab) 1 tab PO ONE STA Stop: 01/01/23 21:09 Last Admin: 01/01/23 21:37 Dose: 1 tab Documented By: LAURENT Discharge Plan Visit Data Chief Complaint: Vaginal Bleeding Stated Complaint: MISCARRIAGE/MHID ED Provider: Star Chamberlain Discharge Problem: Alcohol intoxication, Acute dehydration, Depression with suicidal ideation Patient Disposition: Admitted As Inpatient Discharge Instructions Interventions: ED Discharge Assessment Last Done: 01/01/23 21:01
[2023-01-01] MEDS ORDERED: SODIUM CHLORIDE 0.9% 1000ML 1,000 ML IV SCH (19:00)
[2023-01-01 19:52] LABS: Basophils # (auto) 0.08 K/uL (0-0.2); Basophils % (auto) 0.7 %; Eosinophils # (auto) 0.03 K/uL (0-0.50); Eosinophils % (auto) 0.3 %; Hematocrit (blood only) 48.9 % (37.0-47.0); Hemoglobin 16.5 g/dl (12.0-16.0); Immature Granulocytes # (auto) 0.06 K/uL (0.01-0.20); Immature Granulocytes % (auto) 0.5 %; Lymphocytes # (auto) 3.26 K/uL (1.2-3.4); Lymphocytes % (auto) 27.2 %; Mean Corpuscular Hemoglobin 31.7 pg (25.0-34.0); Mean Corpuscular Hgb Conc 33.7 g/dL (32.0-36.0); Mean Corpuscular Volume 93.9 fL (80.0-100.0); Mean Platelet Volume 8.5 fL (9.4-12.4); Monocytes # (auto) 0.31 K/uL (0.11-0.59); Monocytes % (auto) 2.6 %; Neutrophils # (auto) 8.26 K/uL (1.40-6.50); Neutrophils % (auto) 68.7 %; Platelet Count 365 K/uL (130-400); RDW Coefficient of Variation 13.6 % (11.5-14.5); RDW Standard Deviation 47.3 fL (36.4-46.3); Red Blood Count 5.21 M/uL (4.20-5.40)
[2023-01-01 19:53] LABS: Albumin Globulin Ratio 1.4 (0.9-2); BUN Creatinine Ratio 12.6 (10-20); Bilirubin,Total 0.3 mg/dl (0.2-1.0); Creatinine Clr Calc Pharmacy 79.3 ml/min; Est GFR (African American) 94.5 ml/min; Est GFR (Non-African American) 81.5 ml/min; Globulin 3.5 gm/dl (2.5-4.0); Potassium 3.8 mmol/L (3.5-5.1); Total Protein 8.5 gm/dl (6.0-8.3)
[2023-01-01 19:59] LABS: Beta HCG Quantitative < 1 mIU/ml
[2023-01-01 20:04] LABS: Partial Thromboplastin Ratio 0.9; Partial Thromboplastin Time 23.4 Seconds (21.0-31.0); Prothrombin Time 10.4 Seconds (9.0-12.0)
[2023-01-01 20:05] LABS: Acetaminophen < 3 ug/ml (10-30); Salicylate < 3.0 mg/dl (3.0-30)
[2023-01-01 20:08] LABS: Thyroid Stimulating Hormone 1.096 uIu/ml (0.300-4.500)
[2023-01-01] MEDS ORDERED: LORazepam 2 MG/1 ML VIAL IV PRN ×3 (20:13)
[2023-01-01] MEDS ORDERED: Ativan IV Alcohol Withdrawal--Active Protocol IV PRN (20:13)
[2023-01-01] MEDS ORDERED: Ativan PO Alcohol Withdrawal--Active Protocol PO PRN (20:13)
--- NOTE | 2023-01-01 20:14 | History & Physical Report ---
Date of Service January 01, 2023 Assessment & Plan (1) Alcoholism: Plan: 27yo female with PMHx of alcoholism presented with acute alcohol intoxication and reporting that she had been trying to hurt herself by drinking. Acute Alcohol Intoxication -h/o of alcoholism, 1st episode in several months -ethyl alcohol 4539 -UDS pending -NSS bolus in ED -Banana bag ordered on admission -Continue NSS at 125cc/h thereafter -cont. folic acid, thiamine -on AWSS protocol, seizure precautions Suicidal Ideation -Patient reported wanting to hurt herself to ED provider -She did not want to discuss anything upon admission, stating "you already know what happened" -Will consult Psych for further recommendations regarding SI ?Vaginal Bleeding -Per ED provider patient reported vaginal bleeding that she attributed to a "miscarriage" -However, HCG on admission was negative -As above, patient refused to discuss history on admission -Recommend revisiting when alcohol levels has subsided/patient is more talkative DVT ppx:SCDs FEN/GI:regular Code Status:full Dispo:med tele (2) Acute alcohol intoxication: History of Present Illness Primary Care Provider: NO PCP 27yo female with PMHx of alcoholism presented via EMS for acute alcohol intoxication. She reported vaginal bleeding, stating that she was and was miscarrying. However, lab work in the ED showed negative quantitative HCG. Blood alcohol level was found to be 539. WBC was mildly elevated at 12, Hgb 16.5, Plt 365. She had normal electrolytes, did have an anion gap of 17 with bicarb of 25. BUN & creatinine both normal. UDS and urine preg are pending. Upon my evaluation patient was drowsy and slurring her words. When asked about her history of present illness she stated "you already know what happened" and refused to answer questions. She did understand that she was being admitted for monitoring and hydration given her high alcohol level. She did deny JAY, CP, palp, n/v, abd pain, SOB. When asked about psychiatric concerns she also stated "you already know". Allergies Allergy/AdvReac Type Severity Reaction Status Date / Time amoxicillin Allergy Mild rash Verified 11/18/22 08:33 clavulanic acid Allergy Mild rash Verified 11/18/22 08:33 Home Medications Medication Instructions Recorded Confirmed Type lorazepam 1 mg tablet (Ativan) 1 mg PO TID PRN anxiety #20 tabs 01/02/23 Rx Past Med/Surg History Medical History Alcohol abuse Alcoholism Migraines Ovarian cyst Surgical History H/O wrist surgery History of appendectomy Family History Grandfather (Paternal) Skin cancer Denies family history of Ovarian cancer Breast cancer Colorectal cancer Social History Smoking Status: Never smoker Do You Dip or Chew Tobacco: No; Hx Alcohol Use: Yes Alcohol type: hard liquor Hx Substance Use: No Preferred Language: [place] Communication Ability: Effective Window And Door Installer Required: No Beliefs That Will Affect Care: None Current Living Situation: Alone Other Information That Helps Us Care for You: No Feels Safe at Home: Yes Safety Concerns: Feels Safe At This Time Assistive Devices: Contacts Review of Systems Review of Systems: per HPI Physical Exam Physical Exam: GENERAL: Intoxicated, slurring words. Not cooperating fully. HEENT: EOMI CHEST/LUNGS: CTAB. No crackles, wheezes, rales, rhonchi. HEART: RRR. No m/g/r. ABDOMEN: Unable to assess EXTREMITIES: No cyanosis, no clubbing, no edema SKIN: Warm and dry. No rashes or lesions. PSYCHIATRIC: Intoxicated, sad affect, tears up at times. NEUROLOGIC: Unable to assess due to lack of cooperation. Moves all extremities equally. Results & Data Results & Data Vital Signs (Past 12 Hours) Vital Signs Temp Pulse Pulse Resp BP BP Pulse Ox 01/01/23 19:33 91 H 16 117/80 92 01/01/23 19:16 01/01/23 19:07 118 H 01/01/23 18:50 37.1 C 126 H 18 131/93 97 O2 Del Method 01/01/23 19:33 Room Air 01/01/23 19:16 Room Air 01/01/23 19:07 01/01/23 18:50 Room Air Supervising Physician Co-Signing Physician Notes Attending addendum: I have physically seen this patient, have supervised the medical residents activities, and agree with the H&P unless as otherwise noted. Assessment and Plan: Alcoholism with acute alcohol intoxication- Ethyl alcohol level 539.0 AWSS protocol Thiamine 100 mg p.o. daily Folic acid 1 mg p.o. daily Multivitamin, 1 p.o. daily Suicidal ideation- Patient reluctant to communicate She did report to ED provider that she wanted to hurt herself Consulting psychiatry Suicidal precautions Remaining orders and notations as noted Resident Activity Tracking Resident Involvement: Resident Care Provided Care Provided: Adult [facility]
[2023-01-01] MEDS ORDERED: ONDANSETRON INJ 2 MG/ML 2 ML VIAL IV PRN (21:01)
[2023-01-01] MEDS ORDERED: THIAMINE HCL 100 MG, FOLIC ACID 1 MG in SODIUM CHLORIDE 0.9% 1000ML 1,000 ML IV SCH (21:01)
[2023-01-01] MEDS ORDERED: CEROVITE ADV FORMULA TAB PO STA (21:08)
[2023-01-01] MEDS: SODIUM CHLORIDE 0.9% 1000ML 1,000 ML IV SCH (21:37)
[2023-01-02] MEDS ORDERED: Ativan IV Alcohol Withdrawal--Active Protocol IV PRN (00:36)
[2023-01-02] MEDS ORDERED: LORazepam 2 MG/1 ML VIAL IV PRN ×2 (00:36)
[2023-01-02] MEDS ORDERED: LORazepam 2 MG/1 ML VIAL IV STA (01:07)
[2023-01-02] MEDS: LORazepam 2 MG/1 ML VIAL IV PRN ×2 (06:18→11:38)
[2023-01-02 06:37] LABS: Hematocrit (blood only) 36.8 % (37.0-47.0); Hemoglobin 12.7 g/dl (12.0-16.0); Mean Corpuscular Hemoglobin 31.8 pg (25.0-34.0); Mean Corpuscular Hgb Conc 34.5 g/dL (32.0-36.0); Mean Platelet Volume 8.5 fL (9.4-12.4); Platelet Count 281 K/uL (130-400); RDW Coefficient of Variation 13.6 % (11.5-14.5); RDW Standard Deviation 46.9 fL (36.4-46.3); White Blood Count 9.67 K/ul (4.8-10.8)
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
[2023-01-02 06:59] LABS: Albumin Globulin Ratio 1.5 (0.9-2); Albumin Level 3.7 gm/dl (3.4-5.0); BUN Creatinine Ratio 14.5 (10-20); Bilirubin,Total 0.4 mg/dl (0.2-1.0); Calcium 7.8 mg/dl (8.6-10.3); Creatinine Clr Calc Pharmacy 99.2 ml/min; Est GFR (African American) 123.7 ml/min; Est GFR (Non-African American) 106.8 ml/min; Globulin 2.5 gm/dl (2.5-4.0); Magnesium 1.6 mg/dl (1.7-2.4); Phosphorus 3.9 mg/dl (2.5-4.9); Total Protein 6.2 gm/dl (6.0-8.3)
[2023-01-02 07:00] LABS: Basophils # (auto) 0.08 K/uL (0-0.2); Basophils % (auto) 0.8 %; Eosinophils # (auto) 0.04 K/uL (0-0.50); Eosinophils % (auto) 0.4 %; Immature Granulocytes # (auto) 0.02 K/uL (0.01-0.20); Immature Granulocytes % (auto) 0.2 %; Lymphocytes # (auto) 4.89 K/uL (1.2-3.4); Lymphocytes % (auto) 50.6 %; Monocytes # (auto) 0.53 K/uL (0.11-0.59); Monocytes % (auto) 5.5 %; Neutrophils # (auto) 4.11 K/uL (1.40-6.50); Neutrophils % (auto) 42.5 %
[2023-01-02] MEDS: SODIUM CHLORIDE 0.9% 1000ML 1,000 ML IV SCH ×3 (07:35→22:45)
[2023-01-02] MEDS: hydrOXYzine HCl 25 MG TAB PO PRN ×3 (09:24→22:53)
[2023-01-02] MEDS: FOLIC ACID 1 MG TAB PO SCH (09:24)
[2023-01-02] MEDS: THIAMINE HCL 100 MG TAB PO SCH (09:24)
[2023-01-02 10:36] LABS: Appearance Urine Clear (Clear); Bacteria Urine Automated 1+ (Negative); Bilirubin Urine Negative (Negative); Blood Urine Trace (Negative); Color Urine Yellow; Epithelial Cell Urine Auto >30 /lpf (0-5); Glucose Urine UA Negative (Negative); Ketones Urine Negative (Negative); Leukocyte Esterase Urine Negative (Negative); Nitrite Urine Negative (Negative); Protein Urine Negative (Negative); RBC Urine Automated 0-4 /hpf (0-4); Specific Gravity Urine 1.019 (1.000-1.030); Urobilinogen Urine Negative (Negative)
[2023-01-02] MEDS ORDERED: MAGNESIUM SULFATE / D5W 1 GM/100 ML BAG IV ONE (10:56)
[2023-01-02 11:47] LABS: Amphetamines+Metham, Urine Neg (Neg); Barbiturates, Urine Neg (Neg); Benzodiazepine, Urine Neg (Neg); Cocaine, Urine Neg (Neg); MDMA (Ecstacy), Urine Neg (Neg); Methadone, Urine Neg (Neg); Opiate, Urine Neg (Neg); Phencyclidine, Urine Neg (Neg)
--- NOTE | 2023-01-02 17:52 | Psychiatric Consultation ---
Date of Consultation January 02, 2023 Impression / Recommendations Impression 27 y/o F with severe alcohol dependence and a degree of depressed mood and anxiety who presented demonstrating strong tolerance (walking and talking with BAL of 539 mg/dL) who does not think of her drinking as a problem. Despite what she says about infrequent use, her high degree of tolerance suggest regular use, and the documented BAL suggests sufficient consumption that there may be a high risk of alcohol withdrawal. She says she's never experienced any significant withdrawal symptoms, though. 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 Effective MAT includes disulfiram, acamprosate (which must be taken TID), and naltrexone (which can be taken as a single daily pill or as a monthly IM injection). Any of these can be used together. Naltrexone is usually the most likely to be used effectively since the regimen is uncomplicated and the mechanism doesn't depend on punishment. Used properly, MAT reduces relapse risk by around 50%, though given the very high baseline relapse risk this is by no means an approach likely to be effective in itself. Best outcomes combine MAT with self-help (AA or others), individual (with a licensed alchol and drug abuse counselor), groups, or a combination of some or all of these. Obviously, patient motivation for sobriety is a major factor in success. * Pt might benefit from outpatient psychiatric treatment for her mood and anxiety symptoms, though medication options are limited with her degree of alcohol use and, in general, medications don't work well for alcohol-induced mood or anxiety symptoms. * There is no indication for psychiatric admission, unless pt were to opt for substance use disorder (JOSE) treatment ("rehab"). * pt does not need suicide precautions * pt does not meet criteria for emergency involuntary psychiatric admission (part 302) Psych History Identifying Data Lupe Tapia is a 27-year-old F with a history of alcohol use disorder, admitted on 01/01/2023 for possible alcohol withdrawal. Consult is by the hospitalist service for "SI". Chief Complaint "When can I go home". History of Present Illness As part of my review of the medical record, I read the following ED psychiatric case management specialist note: "Pt to ED via EMS. Per RN, pt stated she was having a miscarriage this morning, drank 3/4 bottle of vodka. People were unable to reach pt and a wellness check was performed. Pt voiced SI to EMS. Suicide risk assessment and MH assessment to be performed once pt is confirmed sober." and the following psychiatric liaison nurse note: "Patient seen for initial consult. Alert and oriented x 4 with flat affect. Pt. denying SI, Hx of SI, or thoughts of self harm. Pt. states she is unsure why she drank so much, but cites increased anxiety and depression as well as thoughts that she had a spontaneous recently. Pt states she only drinks a few times a moth and doesn't feel she needs help with alcohol abuse. Pt has taken Zoloft in the past. but she didn't like the side effects of "feeling like a zombie", and would be open to trying other meds with an outpatient provider. Pt has also seen a therapist in the past, but finances were a concern. Purple resource book given to patient to help identify local resources she might be interested in. Patient agrees to alert staff if any mental health needs arise." Pt presented to the ED with BAL of 539 mg/dL saying she was having a miscarriage, though test was negative. At one point, she reported that she drank ca. 562 mL vodka in order to kill herself because she was despondent over the miscarriage. It was suggested that she only drank today. Pt has a history of 2 previous presentations to this ED with very high BAL, the lowest of which was 447 mg/dL, since July 2021. She no longer recalls having said anything about trying to kill herself with vodka and disavows any suicidal thoughts at all. She does endorse some depressed mood and anxiety. She is not very interested in substance use disorders (JOSE) treatment, saying she "did rehab a while back and it didn't change anything". Reports no history of withdrawal symptoms. Allergies Allergy/AdvReac Type Severity Reaction Status Date / Time amoxicillin Allergy Mild rash Verified 11/18/22 08:33 clavulanic acid Allergy Mild rash Verified 11/18/22 08:33 Home Medications Medication Instructions Recorded Confirmed Type lorazepam 1 mg tablet (Ativan) 1 mg PO TID PRN anxiety #20 tabs 01/02/23 Rx Patient History Medical History Alcohol abuse Alcoholism Migraines Ovarian cyst Surgical History H/O wrist surgery History of appendectomy Family History Grandfather (Paternal) Skin cancer Denies family history of Ovarian cancer Breast cancer Colorectal cancer Social History Smoking Status: Never smoker Do You Dip or Chew Tobacco: No; Hx Alcohol Use: Yes Alcohol type: hard liquor Hx Substance Use: No Preferred Language: Yakut Communication Ability: Effective Benefit Director Required: No Beliefs That Will Affect Care: None Current Living Situation: Alone Other Information That Helps Us Care for You: No Feels Safe at Home: Yes Safety Concerns: Feels Safe At This Time Assistive Devices: Contacts Physical Exam Psychiatric: Orientation: alert, oriented to person, oriented to place, oriented to time and cooperative Apperance: appropriately dressed and appropriately groomed Eye Contact: + fair eye contact Motor Behavior: steady gait and station and no abnormal motor movements Speech: normal rate/rhythm/volume of speech Affect: + constricted affect Mood: + anxious mood Thought Process: goal directed thought process and linear/logical thought process Thought Content: reality based without delusions Suicidal Thoughts: denies suicidal thoughts, denies suicidal plan and denies suicidal intent Homicidal Thoughts: denies homicidal thoughts Hallucinations: no a uditory hallucinations and no visual hallucinations Cognition: recent memory grossly intact, remote memory grossly intact, attention grossly intact and language grossly intact Estimated Intelligence: average estimated intelligence Insight: + fair insight Judgment: + fair judgement Vital Signs (Past 24 Hours): Last Vital Signs Temp 36.7 C 01/02/23 15:19 Pulse 81 01/02/23 15:19 Resp 18 01/02/23 15:19 BP 114/77 01/02/23 15:19 Pulse Ox 97 01/02/23 15:19 O2 Del Method Room Air 01/02/23 15:19 Review of Systems Psychiatric: + depression, + anxiety and + substance abuse; no hopelessness, no anhedonia, no change in appetite, no suicidal ideation, no homicidal ideation, no panic attacks, no paranoia and no hallucinations Results & Data (PSY) Medications Administered Folic Acid (Folic Acid 1 Mg Tab) 1 mg PO QAM [facility] Stop: 02/01/23 08:59 Last Admin: 01/02/23 09:24 Dose: 1 mg Documented By: TAE Hydroxyzine HCl (Hydroxyzine Hcl 25 Mg Tab) 50 mg PO Q6H PRN PRN Reason: Anxiety Stop: 02/01/23 09:14 Last Admin: 01/02/23 16:48 Dose: 50 mg Documented By: Admin: 01/02/23 09:24 Dose: 50 mg Documented By: TAE Sodium Chloride (Nss 1000ml) 1,000 mls @ 125 mls/hr IV .Q8H [facility] Stop: 01/31/23 21:00 Last Admin: 01/02/23 15:21 Dose: 125 mls/hr Documented By: Infusion: 01/02/23 15:21 Dose: 125 mls/hr Documented By: Admin: 01/02/23 07:35 Dose: 125 mls/hr Documented By: Infusion: 01/02/23 05:37 Dose: 125 mls/hr Documented By: Admin: 01/01/23 21:37 Dose: 125 mls/hr Documented By: LAURENT Lorazepam (Lorazepam 2 Mg/1 Ml Vial) 1 mg IV UD PRN; Protocol PRN Reason: EtOH Withdrawal AWSS Score 6,7 Stop: 02/01/23 00:35 Last Admin: 01/02/23 11:38 Dose: 1 mg Documented By: Admin: 01/02/23 06:18 Dose: 1 mg Documented By: DORIS Thiamine HCl (Thiamine Hcl 100 Mg Tab) [facility] Stop: 02/01/23 08:59 Last Admin: 01/02/23 09:24 Dose: 100 mg Documented By: RENITA Coding Level of Care Code 20766 IN/OBS CONSULT LVL 4,60M Diagnoses Alcohol-induced mood disorder with depressive symptoms F10.94 Alcohol use disorder, severe, dependence F10.20 Time Spent (min) 65
--- NOTE | 2023-01-02 18:50 | Billing Data ---
Date of Service January 02, 2023 Coding Level of Care Code 26589 SUB INP/OBS CARE MIN
--- NOTE | 2023-01-02 19:57 | Billing Data ---
Date of Service January 02, 2023 Coding Level of Care Code 33786 INT INP/OBS CARE
[2023-01-03] MEDS: SODIUM CHLORIDE 0.9% 1000ML 1,000 ML IV SCH (06:37)
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
[2023-01-03] MEDS: FOLIC ACID 1 MG TAB PO SCH (09:06)
[2023-01-03] MEDS: THIAMINE HCL 100 MG TAB PO SCH (09:06)
--- NOTE | 2023-01-03 17:45 | Billing Data ---
Date of Service January 03, 2023 Coding Level of Care Code 69388 IN/OBS DISCH 30 MIN/LESS
== END 2023-01-03 13:15 | disposition home or self-care (01) | DRG 897 ==
LOC: ED 18:43 → EDINP 20:29 → SUATTDRO 20:29 → 3E 23:29